=== PATIENT | female | born 1985 | race African-American/Black ===

== ENCOUNTER 2017-04-16 20:10 | Emergency (ER) | payer SELFPAY ==
[~2017-04-16] VITALS: Ht 160 cm; Wt 119.4 kg
[2017-04-16 20:46] VITALS: BP 151/70
--- NOTE | 2017-04-16 23:07 | NUR ---
PT TAKEN TO [facility]
--- NOTE | 2017-04-17 01:25 | NUR ---
Dr. Wilkinson evaluating patient
[2017-04-17] MEDS ORDERED: HYDROcodone/APAP 10/325 MG 1 TAB TAB PO STA (01:37)
[2017-04-17] MEDS ORDERED: PENICILLIN V POTASSIUM 250 MG TAB PO ONE (01:40)
[2017-04-17] MEDS ORDERED: predniSONE 20 MG TAB PO ONE (01:40)
--- NOTE | 2017-04-17 02:02 | NUR ---
MEDICATED PER [facility] ORDER, PATIENT TOLERATED WELL.
[2017-04-17] MEDS ORDERED: predniSONE 20 MG TAB ONE (02:16)
[2017-04-17 02:36] VITALS: BP 132/75
--- NOTE | 2017-04-17 02:36 | NUR ---
Patient discharged with v/s stable. Written and verbal after care instructions given and explained. Patient alert, oriented and verbalized understanding of instructions. Ambulatory with steady gait. All questions addressed prior to discharge. ID band removed. Patient advised to follow up with PMD OR RETURN TO ER IF CONDITION WORSENS. Rx of NORCO AND PENICILLIN VK given. Patient educated on indication of medication including possible reaction and side effects. Opportunity to ask questions provided and answered.
== END 2017-04-17 02:36 | disposition home or self-care (01) ==
LOC: MED 20:10
DX: J02.9 Acute pharyngitis, unspecified (principal); R03.0 Elevated blood-pressure reading, without diagnosis of hypertension; Z87.891 Personal history of nicotine dependence; Z90.49 Acquired absence of other specified parts of digestive tract
CPT/HCPCS: 99284; J7512

== ENCOUNTER 2019-02-04 18:00 | Emergency (ER) | payer SELFPAY ==
[~2019-02-04] VITALS: Ht 160 cm; Wt 122.1 kg
[2019-02-04 18:11] VITALS: BP 131/73
--- NOTE | 2019-02-04 18:22 | NUR ---
PATIENT AMBULATED TO BED 12
--- NOTE | 2019-02-04 18:43 | NUR ---
C/O SORE THROAT X 2 DAYS. PT DENIES COUGH/N/V/D/FEVER. LUNGS CLEAR BL; HR EVEN AND REGULAR
--- NOTE | 2019-02-04 19:50 | NUR ---
ermd at bedside
[2019-02-04 20:07] VITALS: BP 129/75
--- NOTE | 2019-02-04 20:09 | NUR ---
Patient discharged with v/s stable. Written and verbal after care instructions given and explained. Patient verbalized understanding. Ambulatory with steady gait. All questions addressed prior to discharge. Advised to follow up with PMD.
== END 2019-02-04 20:01 | disposition home or self-care (01) ==
LOC: MED 18:00
DX: J02.8 Acute pharyngitis due to other specified organisms (principal); B96.89 Other specified bacterial agents as the cause of diseases classified elsewhere; Z87.891 Personal history of nicotine dependence; Z98.890 Other specified postprocedural states
CPT/HCPCS: 99281